=== PATIENT | male | born 1965 | race Caucasian/White ===

== ENCOUNTER 2025-01-09 11:10 | Emergency (ER) | payer OTHER, SELFPAY ==
--- NOTE | ~2025-01-09 | CT_ITS ---
EXAMINATION: CT FACIAL BONES WITH CONTRAST CLINICAL INFORMATION: Left facial swelling, rule out left maxillary abscess. COMPARISON: None available. TECHNIQUE: Spiral CT imaging of the maxillofacial bones and mandible performed in axial plane without contrast. Multiplanar reformatted images were constructed from the axial data set. This CT examination was performed using dose optimization techniques as appropriate, variously including the following: *Automated exposure control *Adjustment of mA and/or kV according to patient size (this includes techniques or standardized protocols for targeted exams where dose is matched to indication/reason for exam; i.e. extremities or head) *Use of iterative reconstruction technique FINDINGS: Diffuse soft tissue swelling of the left premandible and submental region, without definable abscess present. There is unorganized fluid tracking around the left masseter muscle, and around the left parasymphyseal mandible in the buccal space to the level of the ramus. No definite discrete enhancing periosteal abscess is identified. There is thickening of the platysma muscle, and fluid tracking into the left submandibular space and left anterior cervical space. Etiology appears to be severe dental disease with numerous periapical lucencies of the bilateral mandible and bilateral maxilla. Numerous carious lesions within the teeth. No enlargement of the muscles of mastication. The tongue and tongue base appear normal. The floor of mouth appears normal. Mild mass effect upon the left submandibular gland is noted, located slightly medially. Imaged intracranial contents demonstrate no mass effect, edema, or abnormal enhancement. Imaged globes and orbits appear normal. Paranasal sinuses, mastoids, and tympanic cavities are normally aerated. CT/CT facial bones w IV con IMPRESSION: 1. Left facial and pre-mental cellulitis, likely dental origin, without definable subperiosteal, peripherally enhancing, or drainable abscess detected. 2. Numerous periapical lucencies and carious lesions within the mandibular and maxillary teeth. 3. Swelling of the left buccal space involving the left parasymphyseal mandible to the left mandibular ramus, with unorganized fluid tracking into the left submandibular space and left anterior cervical space. Electronically signed by: Blayne Norton MD 01/09/2025 02:21 PM EDT
--- NOTE | 2025-01-09 11:14 | ECG_ITS ---
Test Reason : weakness Blood Pressure : */* mmHG Vent. Rate : 72 BPM Atrial Rate : 72 BPM P-R Int : 166 ms QRS Dur : 76 ms QT Int : 402 ms P-R-T Axes : 62 -22 50 degrees QTcB Int : 440 ms Normal sinus rhythm Normal ECG No previous ECGs available Referred By: Aislinn Mena Electronically Signed By: JASPER ONEIL MD
[2025-01-09 11:43] VITALS: BP 95/52; PULSE 71; RESP 18; TEMP 36.4; O2SAT 98; BMI 22.5
--- NOTE | 2025-01-09 11:43 | ED.GENADULT ---
HPI - General Adult General Chief complaint: Dental/Oral Stated complaint: Facial swelling L side, weakness Time Seen by Provider: 01/09/25 12:20 Related Data Previous Rx's ?Medication ?Instructions ?Recorded amoxicillin 875 mg-potassium 1 tab PO BID #20 tabs 01/09/25 clavulanate 125 mg tablet naproxen 500 mg tablet 500 mg PO BID PRN pain #20 tabs 01/09/25 oxycodone 5 mg tablet 5 mg PO Q6H PRN pain #15 tabs 01/09/25 Allergies Allergy/AdvReac Type Severity Reaction Status Date / Time No Known Allergies Allergy Verified 01/09/25 11:45 Physical Exam ED Vital Signs: Vital Signs - 24 hr 01/09/25 14:25 01/09/25 15:21 01/09/25 17:22 Temperature 97.7 F 97.8 F 97.2 F Pulse Rate 65 54 55 Respiratory Rate 14 18 18 Blood Pressure 100/57 L 107/60 108/68 Pulse Oximetry 98 99 99 Oxygen Delivery Method Room Air Room Air Room Air BMI result Body Mass Index 22.5 Course Course Course Narrative: This is a rapid medical exam performed by Ifeoma Mena NP: Additional HPI, ROS, PE not included below will be deferred to primary provider. Patient is a 59-year-old male with history of sepsis presenting to ED with daughter complaining of left sided facial pain and swelling since last night. Reports poor dentition. This morning, pale, diaphoretic, weak. Plan: labs including cultures and lactic, will need CT Medications Administered Discontinued Medications Generic Name Dose Route Start Last Admin Trade Name Freq PRN Reason Stop Dose Admin Dexamethasone Sodium Phosphate 10 mg 01/09/25 12:37 01/09/25 12:54 Dexamethasone Sod Phosphate 10 Mg/Ml Vial IVPUSH 01/09/25 12:38 10 mg ONCE ONE Administration Piperacillin Sod/Tazobactam 100 mls @ 200 mls/hr 01/09/25 12:35 01/09/25 13:24 Sod 4.5 gm/ Sodium Chloride IV 01/09/25 13:04 Infused ONCE ONE Infusion Sodium Chloride 1,000 mls @ 999 mls/hr 01/09/25 15:00 01/09/25 15:00 Ns IVCONT 01/09/25 16:00 999 mls/hr .Q1H1M MARQUITA Administration Iohexol 85 ml 01/09/25 13:52 01/09/25 13:52 Iohexol 350 Mg/Ml 100 Ml Infus..Btl IV 01/09/25 13:53 85 ml ONCE ONE Administration Ketorolac Tromethamine 15 mg 01/09/25 12:36 01/09/25 12:53 Ketorolac Tromethamine 15 Mg/Ml Vial IVPUSH 01/09/25 12:37 15 mg ONCE ONE Administration Medical Decision Making Lab Data 01/09/25 12:15 01/09/25 12:15 Labs: Lab Results 01/09/25 Range/Units 12:15 WBC 13.5 H (4.8-10.8) X10*3/uL RBC 5.32 (4.60-5.80) X10*6/uL Hgb 16.1 (14.0-18.0) g/dl Hct 47.4 (42.0-52.0) % MCV 89.1 (80.0-98.0) fL MCH 30.3 (27.0-33.0) pg MCHC 34.0 (31.0-36.0) g/dl RDW 13.8 (11.0-16.0) % Plt Count 291 (160-400) X10*3/uL MPV 8.7 L (9.4-12.4) fL Immature Gran % (Auto) 0.2 (0.0-0.4) % Neut % (Auto) 76.8 H (45-73) % Lymph % (Auto) 11.5 L (20-40) % [place]och % (Auto) 8.7 (2-11) % Eos % (Auto) 2.4 (0-4) % Baso % (Auto) 0.4 (0-2) % Lymph # (Auto) 1.6 (1.2-4.9) X10*3/uL [place] # (Auto) 1.2 (0.1-1.2) X10*3/uL Eos # (Auto) 0.3 (0.0-0.4) X10*3/uL Baso # (Auto) 0.1 (0.0-0.2) X10*3/uL Abs Immat Gran (auto) 0.03 (0.00-0.03) X10*3/uL Absolute Neuts (auto) 10.4 H (2.0-8.3) x10*3/uL Absolute Nucleated RBC 0.000 (0.0-0.012) X10*3/uL Nucleated RBC % (auto) 0.0 (0.0-0.2) /100WBC ESR 6 (0-15) MM/HR Sodium 142 (135-145) mmol/L Potassium 4.5 (3.3-5.1) mmol/L Chloride 104 (96-108) mmol/L Carbon Dioxide 27 (22-29) mmol/L Anion Gap 16 (12-20) BUN 18 H (9-16) mg/dL Creatinine 1.04 (0.5-1.4) mg/dL Estim Creat Clear Calc 77.8 Estimated GFR > 60 Random Glucose 141 H (60-115) mg/dL Lactic Acid 1.9 (0.5-2.0) mmol/L Calcium 9.6 (8.4-10.2) mg/dL Total Bilirubin 0.4 (0.0-1.0) mg/dL AST 21 (5-37) U/L ALT 27 (0-40) U/L Alkaline Phosphatase 102 (39-117) U/L Troponin I High Sens 3.2 (<3.5-35.0) ng/L C-Reactive Protein 3.47 H (< or = 0.50) mg/dL Total Protein 7.8 (6.5-8.0) g/dL Albumin 4.6 (3.5-5.0) g/dL Discharge Plan Discharge Clinical Impression: Dental caries, Cellulitis of face Patient Disposition: Home, Self-Care Instructions: Cellulitis (ED), Tooth Extraction (DC) Additional Instructions: please take the antibiotic Augmentin as directed twice, also take anti-inflammatory medication as directed (naproxen ) you need to follow-up with a dentist or oral surgeon. The doctor examined new today we will be here tomorrow or the day after tomorrow if you get any worse Prescriptions: New amoxicillin-pot clavulanate 875-125 mg tablet 1 tab PO BID Qty: 20 0RF naproxen 500 mg tablet 500 mg PO BID PRN (Reason: pain) Qty: 20 0RF oxycodone 5 mg tablet 5 mg PO Q6H PRN (Reason: pain) Qty: 15 0RF Rx Instructions: Partial Fill upon patient request. Interventions: ED Discharge Assessment Last Done: 01/09/25 17:22 Discharge Date/Time: 01/09/25 17:23 Print Language: Somali
[2025-01-09 12:22] LABS: MANUAL DIFF FLAG NO
[2025-01-09 12:25] LABS: Basophils Absolute Auto 0.1 X10*3/uL (0.0-0.2); Basophils Percent Auto 0.4 % (0-2); Eosinophils Absolute Auto 0.3 X10*3/uL (0.0-0.4); Eosinophils Percent Auto 2.4 % (0-4); Hematocrit 47.4 % (42.0-52.0); Hemoglobin 16.1 g/dl (14.0-18.0); Imm Gran Abs Auto 0.03 X10*3/uL (0.00-0.03); Imm Gran Pct Auto 0.2 % (0.0-0.4); Lymphocytes Absolute Auto 1.6 X10*3/uL (1.2-4.9); Lymphocytes Percent Auto 11.5 % (20-40); Mean Corpuscular Hemoglobin 30.3 pg (27.0-33.0); Mean Corpuscular Volume 89.1 fL (80.0-98.0); Mean Platelet Volume 8.7 fL (9.4-12.4); Monocytes Absolute Auto 1.2 X10*3/uL (0.1-1.2); Monocytes Percent Auto 8.7 % (2-11); Neutrophils Absolute Auto 10.4 x10*3/uL (2.0-8.3); Neutrophils Percent Auto 76.8 % (45-73); Platelet Count 291 X10*3/uL (160-400); Red Blood Count 5.32 X10*6/uL (4.60-5.80); Red Cell Distribution Width 13.8 % (11.0-16.0); White Blood Count 13.5 X10*3/uL (4.8-10.8)
[2025-01-09 12:38] LABS: Alanine Aminotransferase 27 U/L (0-40); Albumin Level 4.6 g/dL (3.5-5.0); Alkaline Phosphatase 102 U/L (39-117); Anion Gap 16 (12-20); Aspartate Amino Transferase 21 U/L (5-37); Bilirubin Total 0.4 mg/dL (0.0-1.0); Blood Urea Nitrogen 18 mg/dL (9-16); C Reactive Protein 3.47 mg/dL (< or = 0.50); Calcium 9.6 mg/dL (8.4-10.2); Carbon Dioxide 27 mmol/L (22-29); Chloride 104 mmol/L (96-108); Creatinine Clr Calc Pharmacy 77.8; Estimated Glomerular Filt Rate > 60; Glucose Random 141 mg/dL (60-115); Lactic Acid 1.9 mmol/L (0.5-2.0); Potassium 4.5 mmol/L (3.3-5.1); Sodium 142 mmol/L (135-145); Total Protein 7.8 g/dL (6.5-8.0)
--- NOTE | 2025-01-09 12:38 | ED.DENTAL ---
HPI - Dental/Oral General Chief complaint: Dental/Oral Stated complaint: Facial swelling L side, weakness Time Seen by Provider: 01/09/25 12:20 Source: patient Mode of arrival: ambulatory Limitations: no limitations History of Present Illness HPI Narrative: patient presented to the emergency department complaining of swelling of the left mandibular area since yesterday denies any fever chills vomiting he has no comorbidity MD Complaint: tooth pain ( he has multiple cavity in tooth 20//18) Onset (ago): day(s) (1) Duration: constant Severity: moderate Severity scale (1-10): 5 Relieving factors: nothing Exacerbating factors: nothing Context: history of dental caries Associated symptoms: fever Related Data Previous Rx's ?Medication ?Instructions ?Recorded amoxicillin 875 mg-potassium 1 tab PO Q12H #20 tabs 01/09/25 clavulanate 125 mg tablet naproxen 500 mg tablet (Naprosyn) 500 mg PO BID PRN PAIN #20 tabs 01/09/25 oxycodone 5 mg tablet 5 mg PO Q6H PRN pain #15 tabs 01/09/25 Allergies Allergy/AdvReac Type Severity Reaction Status Date / Time No Known Allergies Allergy Verified 01/09/25 11:45 Review of Systems Constitutional: Constitutional: Reports no additional constitutional complaints Cardiovascular: Cardiovascular: Reports no additional cardiovascular complaints Gastrointestinal: Gastrointestinal: Reports no additional gastrointestinal complaints [facility] Past Medical History Attestation statement: The following information was validated with the patient. [facility] Narrative: denies any major medical problem Social History Social History Smoked in Last 30 Days: Yes Use of substances other than those prescribed or required for medical reasons: No Advance Directives: Yes Advance Directives on File: No Physical Exam Vital Signs: Vital Signs: Last Vital Signs Temp 97.8 F 01/09/25 15:21 Pulse 54 01/09/25 15:21 Resp 18 01/09/25 15:21 BP 107/60 01/09/25 15:21 Pulse Ox 99 01/09/25 15:21 O2 Del Method Room Air 01/09/25 15:21 BMI result Body Mass Index 22.5 he looks overall well he is not toxic-appearing smiling Const: General: cooperative Nutritional Appearance: well nourished Orientation/consciousness: patient oriented x3 Limitations: no limitations HEENT: Other: he has swelling in the left side of the face General nose exam: Normal external nose present Face and sinus: Yes normal facial exam Mouth: Normal oral and palatal mucosa present and other ( left side the swelling) Teeth and gingiva: poor dentition Throat: Yes posterior oropharynx normal Neck: Neck: Yes normal visual inspection Chest: Chest palpation & inspection: normal inspection of the chest Resp: Effort & Inspection: normal respiratory effort and able to speak in complete sentences Cardio: Jugular venous distension: no JVD Rate: regular rate Rhythm: regular rhythm GI: Inspection: Yes normal to inspection Palpation (GI): Soft to palpation, not firm and nontender Auscultation: normal bowel sounds Skin: General skin exam: no rashes or lesions noted, elasticity normal and turgor normal Neuro: General: patient oriented x3 Course Reevaluation(s) Reevaluation #1: CT reviewed, we do not have ENT [employer] I placed a call to [facility] possible transfer or at least we will have a ENT review the scan I did speak with the ENT Dr. Terry, there is no abscess to be drained will need follow-up with oral surgery Time: 14:55 Reevaluation #2: at this time the patient is doing much better swelling is down I documented few picture of the pt face, there is no clinical evidence of Terrance angina he is able to lift the tongue, he is not toxic-appearing he has no fever, lactic is normal,I told the patient that I am going to be here tomorrow and the day after tomorrow if he get worse to return to the emergency department he is comfortable with the plan Time: 16:23 Medications Administered Discontinued Medications Generic Name Dose Route Start Last Admin Trade Name Freq PRN Reason Stop Dose Admin Dexamethasone Sodium Phosphate 10 mg 01/09/25 12:37 01/09/25 12:54 Dexamethasone Sod Phosphate 10 Mg/Ml Vial IVPUSH 01/09/25 12:38 10 mg ONCE ONE Administration Piperacillin Sod/Tazobactam 100 mls @ 200 mls/hr 01/09/25 12:35 01/09/25 13:24 Sod 4.5 gm/ Sodium Chloride IV 01/09/25 13:04 Infused ONCE ONE Infusion Sodium Chloride 1,000 mls @ 999 mls/hr 01/09/25 15:00 01/09/25 15:00 Ns IVCONT 01/09/25 16:00 999 mls/hr .Q1H1M MARQUITA Administration Iohexol 85 ml 01/09/25 13:52 01/09/25 13:52 Iohexol 350 Mg/Ml 100 Ml Infus..Btl IV 01/09/25 13:53 85 ml ONCE ONE Administration Ketorolac Tromethamine 15 mg 01/09/25 12:36 01/09/25 12:53 Ketorolac Tromethamine 15 Mg/Ml Vial IVPUSH 01/09/25 12:37 15 mg ONCE ONE Administration Medical Decision Making Medical Decision Making [facility] Narrative: patient is here with tooth abscess we will obtain imaging blood work CT showed no abscess needs to be drained clinically appears well nontoxic, lactic normal, afebrile able to open the mouth completely no clinical evidence of [place] Angina . patient is very comfortable to go home he will follow-up with dentist/oral surgeon antibiotic given Differential Diagnosis Differential Diagnoses: The differential diagnosis associated with the presentation includes tooth abscess /cavities Admission/Observation Consideration of admission/observation: Escalation of care including admission/observation considered Lab Data [facility] Lab Attestation statement: I reviewed the patient's lab results. 01/09/25 12:15 01/09/25 12:15 Labs: Lab Results 01/09/25 Range/Units 12:15 WBC 13.5 H (4.8-10.8) X10*3/uL RBC 5.32 (4.60-5.80) X10*6/uL Hgb 16.1 (14.0-18.0) g/dl Hct 47.4 (42.0-52.0) % MCV 89.1 (80.0-98.0) fL MCH 30.3 (27.0-33.0) pg MCHC 34.0 (31.0-36.0) g/dl RDW 13.8 (11.0-16.0) % Plt Count 291 (160-400) X10*3/uL MPV 8.7 L (9.4-12.4) fL Immature Gran % (Auto) 0.2 (0.0-0.4) % Neut % (Auto) 76.8 H (45-73) % Lymph % (Auto) 11.5 L (20-40) % [place] % (Auto) 8.7 (2-11) % Eos % (Auto) 2.4 (0-4) % Baso % (Auto) 0.4 (0-2) % Lymph # (Auto) 1.6 (1.2-4.9) X10*3/uL [place] # (Auto) 1.2 (0.1-1.2) X10*3/uL Eos # (Auto) 0.3 (0.0-0.4) X10*3/uL Baso # (Auto) 0.1 (0.0-0.2) X10*3/uL Abs Immat Gran (auto) 0.03 (0.00-0.03) X10*3/uL Absolute Neuts (auto) 10.4 H (2.0-8.3) x10*3/uL Absolute Nucleated RBC 0.000 (0.0-0.012) X10*3/uL Nucleated RBC % (auto) 0.0 (0.0-0.2) /100WBC ESR 6 (0-15) MM/HR Sodium 142 (135-145) mmol/L Potassium 4.5 (3.3-5.1) mmol/L Chloride 104 (96-108) mmol/L Carbon Dioxide 27 (22-29) mmol/L Anion Gap 16 (12-20) BUN 18 H (9-16) mg/dL Creatinine 1.04 (0.5-1.4) mg/dL Estim Creat Clear Calc 77.8 Estimated GFR > 60 Random Glucose 141 H (60-115) mg/dL Lactic Acid 1.9 (0.5-2.0) mmol/L Calcium 9.6 (8.4-10.2) mg/dL Total Bilirubin 0.4 (0.0-1.0) mg/dL AST 21 (5-37) U/L ALT 27 (0-40) U/L Alkaline Phosphatase 102 (39-117) U/L Troponin I High Sens 3.2 (<3.5-35.0) ng/L C-Reactive Protein 3.47 H (< or = 0.50) mg/dL Total Protein 7.8 (6.5-8.0) g/dL Albumin 4.6 (3.5-5.0) g/dL Radiology Impression Discussion of test interpretation with radiology: I have reviewed the radiologist's reading. Prescription Management I considered prescription management with: Antibiotic Discharge Plan Discharge Clinical Impression: Dental caries, Cellulitis of face Patient Disposition: Home, Self-Care Instructions: Cellulitis (ED), Tooth Extraction (DC) Additional Instructions: please take the antibiotic Augmentin as directed twice, also take anti-inflammatory medication as directed (naproxen ) you need to follow-up with a dentist or oral surgeon. The doctor examined new today we will be here tomorrow or the day after tomorrow if you get any worse Prescriptions: New amoxicillin-pot clavulanate 875-125 mg tablet 1 tab PO Q12H Qty: 20 0RF naproxen [Naprosyn] 500 mg tablet 500 mg PO BID PRN (Reason: PAIN) Qty: 20 0RF oxycodone 5 mg tablet 5 mg PO Q6H PRN (Reason: pain) Qty: 15 0RF Rx Instructions: partial filing upon pt request; Partial Fill upon patient request. Print Language: Vietnamese
[2025-01-09 12:45] LABS: Troponin-I High Sensitivity 3.2 ng/L (<3.5-35.0)
[2025-01-09] MEDS: Ketorolac Tromethamine 15 MG/ML VIAL IVPUSH (12:53)
[2025-01-09] MEDS: Piperacillin Sodium/Tazobactam 4.5 GM in 0.9 % Sodium Chloride 100 ML IV (12:54)
[2025-01-09] MEDS: dexAMETHasone sod phosphate 10 MG/ML VIAL IVPUSH (12:54)
--- NOTE | 2025-01-09 13:05 | PC.NURSE ---
patient a&ox3, iv inserted, labs drawn, pt medicated for lt lower jaw pain, abd given per order, call gentile within reach, plan of care ongoing
[2025-01-09 13:06] LABS: Erythrocyte Sedimentation Rate 6 MM/HR (0-15)
[2025-01-09] MEDS: iohexoL 350 MG/ML 100 ML INFUS..BTL 85 ML IV (13:52)
[2025-01-09 14:25] VITALS: BP 100/57; PULSE 65; RESP 14; TEMP 36.5; O2SAT 98
[2025-01-09] MEDS: 0.9 % Sodium Chloride 1,000 ML 999 ML IVCONT (15:00)
--- NOTE | 2025-01-09 15:02 | PC.NURSE ---
patient a&ox3, ivf started per order, pt still has 5-6/10 pain, call gentile within reach, plan of care ongoing
[2025-01-09 15:21] VITALS: BP 107/60; PULSE 54; RESP 18; TEMP 36.6; O2SAT 99
[2025-01-09 17:22] VITALS: BP 108/68; PULSE 55; RESP 18; TEMP 36.2; O2SAT 99
== END 2025-01-09 17:23 | disposition home or self-care (01) ==
PROVIDERS: Registered Nurse Emergency; Emergency Provider Emergency Medicine
DX: K02.9 Dental caries, unspecified (principal); L03.211 Cellulitis of face; K08.89 Other specified disorders of teeth and supporting structures
CPT/HCPCS: 36415; 70487; 80053; 83605; 84484; 85025; 85652; 86140; 87040; 93005; 96365; 96375; 99284; 99285; J1100; J1885; J2543; Q9967

== ENCOUNTER → 2025-01-09 11:14 | Outpatient (BNV) | payer OTHER, SELFPAY | PROVIDERS: Emergency Provider Emergency Medicine; Visit Provider Internal Medicine Cardiovascular Disease | DX: R53.1 Weakness (principal) | CPT/HCPCS: 93010 ==

== ENCOUNTER → 2025-01-09 12:35 | Outpatient (BNV) | payer OTHER, SELFPAY | PROVIDERS: Emergency Provider Emergency Medicine; Visit Provider Radiology Diagnostic Radiology | DX: R22.0 Localized swelling, mass and lump, head (principal) | CPT/HCPCS: 70487 ==